=== PATIENT | male | born 1945 | race Caucasian/White ===

== ENCOUNTER 2020-08-22 16:50 | Emergency (ER) | payer OTHER, SELFPAY ==
[2020-08-22] VITALS (13 sets, daily range): BP systolic 102–118; BP diastolic 56–85; PULSE 74–85; RESP 5–36; TEMP 36.7; O2SAT 95–98
--- NOTE | 2020-08-22 16:45 | RT.EKG_ITS ---
APPROVED REPORT Exam: Resting ECG Reason for Exam: sob Patient Location: E HR:83 bpm ECG Measurements Heart Rate 83 AXIS TN 121 P 112 QRSd 102 QRS -87 QT 359 T 84 QTc 414 Conclusion Sinus rhythm...normal P axis, V-rate 60- 99 Ventricular premature complex...V complex w/ short R-R interval Right atrial enlargement...P>0.25mV 2 lds or<-0.24mV aVR/aVL Incomplete RBBB and LAFB...axis(240,-40), S>R II III aVF Physician: depressions in the inferior leads. no elevation. no stemi. artifact present
--- NOTE | 2020-08-22 17:00 | DI.RAD_ITS ---
Exam(s) XR PORTABLE CHEST AP EXAM: XR PORTABLE CHEST AP CLINICAL HISTORY: sob. TECHNIQUE: 2D digital imaging was performed. COMPARISON: No exams were available for comparison FINDINGS: Heart size is normal. The mediastinum is not widened. There are COPD changes-bilateral hyperinflation. No infiltrates nor pleural effusions. No pulmonary edema. No pneumothorax IMPRESSION: Bilateral hyperinflation-COPD. No acute infiltrates. No pneumothorax. No pleural effusions DATA REPOSITORY: RADIATION DOSE DELIVERED: All CT scans at this facility use at least one of these dose optimization techniques: automated exposure control; mA and/or kV adjustment per patient size (includes targeted e xams where dose is matched to clinical indication); or iterative reconstruction.
--- NOTE | 2020-08-22 17:05 | W.ED.GENAD ---
Discharge Plan Disposition Patient Disposition: AGAINST MEDICAL ADVICE Condition: Serious Discharge Details Clinical Impression: Dyspnea Primary Care Provider: Unknown,Unknown ED Provider: Jos Castano Home Meds and New Rx's Prescriptions: No Action ipratropium-albuterol [DuoNeb] 0.5 mg-3 mg(2.5 mg base)/3 mL Solution For Nebulization 3 ml INHALATION PRNRF: 0 polyethylene glycol 3350 17 gram Powder In Packet 17 g PO DAILY RF: 0 fluconazole 200 mg Tablet 200 mg PO DAILY RF: 0 simvastatin 80 mg Tablet 80 mg PO DAILY RF: 0 sildenafil 100 mg Tablet 100 mg PO PRNRF: 0 omeprazole 20 mg Capsule,Delayed Release(Dr/Ec) 20 mg PO BID RF: 0 fluticasone propionate 220 mcg/actuation Hfa Aerosol Inhaler 220 mcg INHALATION RF: 0 aspirin 81 mg Tablet 81 mg PO DAILY RF: 0 albuterol 90 mcg/actuation Aerosol INHALATION .2-4 HOURS PRNRF: 0 Multivitamin And Mineral Tablet 1 tab PO DAILY RF: 0 metoprolol tartrate 25 mg Tablet 25 mg PO BID RF: 0 gabapentin 100 mg Tablet 100 mg PO QID PRNRF: 0 olodaterol 2.5 mcg/actuation Mist 2 INHALATION DAILY RF: 0 acetaminophen [Tylenol Extra Strength] 500 mg Tablet 1,000 mg PO BID PRNRF: 0 ibuprofen 600 mg Tablet 600 mg PO TID PRNRF: 0 prednisone 5 mg Tablet 5 mg PO DAILY RF: 0 Discharge Data Discharge Date/Time-TO BE ENTERED AT DEPARTURE: 08/22/20 18:38 Medical Decision Making This is a 74-year-old gentleman, current smoker, COPD, hypertension, presenting to the ER today for acute on chronic dyspnea. Denies cough or chest pain. Clinically he is slightly tachypneic, breath sounds decreased throughout with scattered wheezing, clinically appears to be COPD exacerbation. However, would like to obtain laboratory values and chest x-ray to rule out atypical ACS, PE, pneumonia, CHF given his shortness of breath, etc. Patient is agreeable with this plan. Will provide a duo and albuterol neb and 125 IV Solu-Medrol. Patient given 125 IV Solu-Medrol. I was called into his room after his neb treatments were completed. Patient states that he does not want to sit any longer and would like to leave. At this point his x-ray was obtained but not officially read by radiology, I did not see any acute infiltrates. Only some laboratory values have resulted including a blood cell count of 20.29. I was able to review records from [facility] on 08/19 of a white count of 25.7. White count is decreasing, no clear signs of infiltrate, likely secondary to steroid use. At this time his troponin, D-dimer, BNP has not resulted so I explained to the patient that his work-up was not completed and I cannot discharge him safely until I have more information. Patient states that he is feeling anxious, I did offer a benzodiazepine but patient declines. Patient appears clinically sober, is of sound mind, and based upon my clinical examination has the capacity to make their own decisions. We have offered treatment options and discussed the the risks and benefits of these options and refusing these options, including and/or disability specific to the patient's pathology. Pt is able to discuss and understands the risks and benefits and alternatives of treatment and refusing treatment. We have tried to involve the patient's family/friend who was in the exam room. The patient still chooses to leave before evaluation and treatment can be completed AGAINST MEDICAL ADVICE. Fortunately after the patient left AMA laboratory values were able to be reviewed, D-dimer is negative per age adjustment, creatinine 1.1 with a GFR greater than 60, initial troponin less than 0.05, BNP minimally elevated at 756 Medical Records Medical records reviewed: Yes I reviewed the patient's medical records. Imaging Data Radiologic Study: Attestation: I personally reviewed and interpreted this imaging study as follows: Imaging: X-Ray Radiologist's impression: XR PORTABLE CHEST AP EXAM: XR PORTABLE CHEST AP CLINICAL HISTORY: sob. TECHNIQUE: 2D digital imaging was performed. COMPARISON: No exams were available for comparison FINDINGS: Heart size is normal. The mediastinum is not widened. There are COPD changes-bilateral hyperinflation. No infiltrates nor pleural effusions. No pulmonary edema. No pneumothorax IMPRESSION: Bilateral hyperinflation-COPD. No acute infiltrates. No pneumothorax. No pleural effusions Lab Data Lab results reviewed: Yes I reviewed the patient's lab results. Labs: Laboratory Tests Range/Units 08/22/20 08/22/20 08/22/20 17:15 17:15 17:15 WBC (4.4-10.8) 10^3/uL 20.29 H RBC (4.36-5.78) 10^6/uL 5.42 Hgb (13.5-17.5) g/dL 16.6 Hct (40.0-50.0) % 50.7 H MCV (80-95) fL 93.5 MCH (27.0-33.0) pg 30.6 MCHC (32.0-36.0) % 32.7 RDW (11.8-14.1) % 14.0 Plt Count (130-400) 10^3/uL 268 MPV (8.0-11.0) fL 9.0 Immature Gran % 1.2 Neutrophils % 88.2 Lymphocytes % 4.6 Monocytes % 5.8 Eosinophils % 0.0 Basophils % 0.2 Nucleated RBC % % 0 Absolute Neutrophils (1.2-6.7) 10^3/uL 17.90 H Absolute Lymphocytes (1.2-3.4) 10^3/uL 0.93 L Absolute Monocytes (0.1-0.8) 10^3/uL 1.18 H Absolute Eosinophils (0.0-0.7) 10^3/uL 0.00 Absolute Basophils (0.0-0.2) 10^3/uL 0.04 PT Cancelled INR Cancelled APTT Cancelled D-Dimer Cancelled Sodium (136-145) mmol/L 139 Potassium (3.5-5.1) mmol/L 4.7 Chloride (98-107) mmol/L 102 Carbon Dioxide (21.0-32.0) mmol/L 34.8 H Anion Gap (3-11) mmol/L 2.2 L BUN (7-18) mg/dL 29 H Creatinine (0.70-1.30) mg/dL 1.1 Estimated GFR/1.73 m2 (mL/min/1.73m2) >= 60.00 Glucose (74-106) mg/dL 129 H Calcium (8.5-10.1) mg/dL 9.1 Magnesium (1.8-2.4) mg/dL 1.9 Total Bilirubin (0.2-1.0) mg/dL 0.6 AST (15-37) U/L 17 ALT (16-63) U/L 40 Alkaline Phosphatase (46-116) U/L 52 Troponin I (<0.06) ng/mL < 0.05 NT-Pro-B Natriuret Pep (<300) pg/mL 756 H Total Protein (6.4-8.2) g/dL 6.1 L Albumin (3.4-5.0) g/dL 3.4 Range/Units 08/22/20 17:35 WBC (4.4-10.8) 10^3/uL RBC (4.36-5.78) 10^6/uL Hgb (13.5-17.5) g/dL Hct (40.0-50.0) % MCV (80-95) fL MCH (27.0-33.0) pg MCHC (32.0-36.0) % RDW (11.8-14.1) % Plt Count (130-400) 10^3/uL MPV (8.0-11.0) fL Immature Gran % Neutrophils % Lymphocytes % Monocytes % Eosinophils % Basophils % Nucleated RBC % % Absolute Neutrophils (1.2-6.7) 10^3/uL Absolute Lymphocytes (1.2-3.4) 10^3/uL Absolute Monocytes (0.1-0.8) 10^3/uL Absolute Eosinophils (0.0-0.7) 10^3/uL Absolute Basophils (0.0-0.2) 10^3/uL PT 11.0 INR 1.1 APTT 23.4 D-Dimer 543 H Sodium (136-145) mmol/L Potassium (3.5-5.1) mmol/L Chloride (98-107) mmol/L Carbon Dioxide (21.0-32.0) mmol/L Anion Gap (3-11) mmol/L BUN (7-18) mg/dL Creatinine (0.70-1.30) mg/dL Estimated GFR/1.73 m2 (mL/min/1.73m2) Glucose (74-106) mg/dL Calcium (8.5-10.1) mg/dL Magnesium (1.8-2.4) mg/dL Total Bilirubin (0.2-1.0) mg/dL AST (15-37) U/L ALT (16-63) U/L Alkaline Phosphatase (46-116) U/L Troponin I (<0.06) ng/mL NT-Pro-B Natriuret Pep (<300) pg/mL Total Protein (6.4-8.2) g/dL Albumin (3.4-5.0) g/dL ECG Data Attestation: I personally reviewed and interpreted this ECG (s) as follows: Interpretation: Please see official report by Dr. Oakes. Sinus rhythm, ventricular rate of 83. Minimal depression in the inferior leads. No STEMI HPI General Mode of arrival: ambulatory. Date/Time Provider Initiated Documentation: 08/22/20 17:03. Limitations to Documentation: no limitations. Information obtained by: patient. HPI Narrative: This is a 74-year-old male, presents to the ER via private vehicle with a friend, past medical history that includes anxiety, hypertension, pulmonary emphysema, severe chronic obstructive pulmonary disease, current pack-a-day smoker, down from 3 packs a day, presenting to the ER for chronic dyspnea. Patient states I need more steroids. Patient states that he has had ongoing symptoms for nearly 1 year. He is followed by his primary care provider and contact representative and takes all of his medications as directed. Patient states over the past couple of days he has felt more short of breath than his baseline. He denies fever, headache, neck pain, chest pain, cough, abdominal pain, nausea, vomiting, change in bowel or bladder function, numbness, tingling, weakness, pain or swelling of his lower extremities. Patient tells me that he was recently at [facility] and was placed on 2 antibiotics, unsure of the name, took as directed and feels as though his early pneumonia has resolved. Patient denies recent travel or sick contacts. He does admit that he has been vaccinated against Covid. Related Data Home Medications Medication Instructions Recorded Confirmed acetaminophen [Tylenol Extra 1,000 mg PO BID PRN 08/22/20 08/22/20 Strength] albuterol mcg INHALATION .2-4 HOURS PRN 08/22/20 aspirin 81 mg PO DAILY 08/22/20 08/22/20 fluconazole 200 mg PO DAILY 08/22/20 08/22/20 fluticasone propionate 220 mcg INHALATION 08/22/20 gabapentin 100 mg PO QID PRN 08/22/20 08/22/20 ibuprofen 600 mg PO TID PRN 08/22/20 08/22/20 ipratropium-albuterol [DuoNeb] 3 ml INHALATION PRN 08/22/20 metoprolol tartrate 25 mg PO BID 08/22/20 08/22/20 multivitamin,fa-dvds-Ox-FA-min 1 tab PO DAILY 08/22/20 08/22/20 [Multivitamin And Mineral] olodaterol 2 INHALATION DAILY 08/22/20 omeprazole 20 mg PO BID 08/22/20 08/22/20 polyethylene glycol 3350 17 g PO DAILY 08/22/20 08/22/20 prednisone 5 mg PO DAILY 08/22/20 08/22/20 sildenafil 100 mg PO PRN 08/22/20 simvastatin 80 mg PO DAILY 08/22/20 08/22/20 Allergies Allergy/AdvReac Type Severity Reaction Status Date / Time No Known Allergies Allergy Unverified 08/22/20 17:08 Review of Systems Constitutional Constitutional: Denies fever(s) and Denies headache(s) ENT Ears, Nose, Mouth, and Throat: Denies headache(s) and Denies neck pain Cardiovascular Cardiovascular: Denies chest pain and Reports dyspnea Respiratory Respiratory: Denies cough and Reports dyspnea Gastrointestinal Gastrointestinal: Denies abdominal pain, Denies nausea and Denies vomiting Musculoskeletal Musculoskeletal: Denies back pain and Denies neck pain Integumentary/Breasts Skin/Breast: Denies rash Neurologic Neurologic: Denies headache(s) [facility] Social History Smoking/Tobacco Use Status: Current every day Tobacco Type: cigarettes Smoking risk assessment performed?: Yes Alcohol Intake: never Drug use: Never Exam Const General: cooperative, comfortable and ill appearing chronically Nutritional Appearance: thin Orientation: alert, awake and oriented x3 HENMT Head: normal to inspection, normocephalic and atraumatic Face and sinus: normal facial exam Mouth: moist mucous membranes Eyes General: appearance normal, both eyes and all related structures Conjunctivae: conjunctivae normal Neck Neck: normal visual inspection, full ROM, trachea midline and supple Resp Effort & Inspection: able to speak in complete sentences and tachypneic (Mild) Auscultation: diminished lung sounds bilaterally throughout and wheezes (Scattered throughout) Cardio Rate: regular rate Rhythm: regular rhythm GI Palpation: soft and nontender Back/Spine/Pelvis Back: No back tenderness Skin General skin exam: no rashes or lesions noted Neuro General: patient alert, patient awake, moves all extremities and no focal motor deficits Cognition: normal cognition Speech: speech normal Motor: muscle tone normal throughout Sensory Exam: no sensory deficits noted Extrem General: normal to inspection, full ROM, capillary refill normal, no pedal edema and no calf tenderness Psych Appearance: grossly normal Mental Status: mental status grossly normal
[2020-08-22 17:25] LABS: Abs Immature Grans 0.25 10^3/uL (0.0-0.06); Absolute Basophil Count 0.04 10^3/uL (0.0-0.2); Absolute Lymphocyte Count 0.93 10^3/uL (1.2-3.4); Absolute Monocyte Count 1.18 10^3/uL (0.1-0.8); Basophils % 0.2; HCT 50.7 % (40.0-50.0); HGB 16.6 g/dL (13.5-17.5); Immature Grans % 1.2; Lymphocytes % 4.6; MCH 30.6 pg (27.0-33.0); MCHC 32.7 % (32.0-36.0); MCV 93.5 fL (80-95); Monocytes % 5.8; Neutrophils % 88.2; Nucleated RBC 0 %; Platelet Count 268 10^3/uL (130-400); RBC 5.42 10^6/uL (4.36-5.78); RDW-SD 48.5 fL; WBC 20.29 10^3/uL (4.4-10.8)
[2020-08-22] MEDS: methylPREDNISolone SUCC 125 MG VIAL IVP (17:33)
[2020-08-22 17:47] LABS: ALT 40 U/L (16-63); AST 17 U/L (15-37); Albumin 3.4 g/dL (3.4-5.0); Alkaline Phosphatase 52 U/L (46-116); Anion Gap 2.2 mmol/L (3-11); BUN 29 mg/dL (7-18); Bilirubin, Total 0.6 mg/dL (0.2-1.0); CO2 34.8 mmol/L (21.0-32.0); CREATININE 1.1 mg/dL (0.70-1.30); Calcium 9.1 mg/dL (8.5-10.1); Chloride 102 mmol/L (98-107); Glucose 129 mg/dL (74-106); Magnesium 1.9 mg/dL (1.8-2.4); NT-proBNP 756 pg/mL (<300); Potassium 4.7 mmol/L (3.5-5.1); Sodium 139 mmol/L (136-145); Total Protein 6.1 g/dL (6.4-8.2); Troponin I < 0.05 ng/mL (<0.06)
[2020-08-22] MEDS: Albuterol 2.5 MG/3 ML INH SOLN VIAL UPD (17:54)
--- NOTE | 2020-08-22 17:59 | DI.VRAD_ITS ---
PROCEDURE INFORMATION: Exam: XR Chest Exam date and time: 08/22/2020 5:09 PM Age: 74 years old Clinical indication: Other: Shortness of breath TECHNIQUE: Imaging protocol: XR of the chest. Views: 1 view. COMPARISON: No relevant prior studies available. FINDINGS: Lungs: Extensive emphysematous changes noted. Lungs are hyperinflated. Pleural spaces: Unremarkable. No pleural effusion. No pneumothorax. Heart/Mediastinum: Unremarkable. No cardiomegaly. Bones/joints: Unremarkable. IMPRESSION: Findings worrisome for COPD/asthma exacerbation. Dictated and Authenticated by: David Amin MD. Ordering:DEBBIE Arguello MD
[2020-08-22] MEDS: Albuterol/Ipratropium 3 ML UPD VIAL UPD (18:01)
[2020-08-22 18:02] LABS: INR 1.1 (0.9-1.1); PTT Activated 23.4 sec (21.0-27.5)
[2020-08-22 18:18] LABS: D-Dimer 543 ng/mlFEU (<500)
== END 2020-08-22 18:38 | disposition left against medical advice (07) ==
LOC: ER 17:20
PROVIDERS: Emergency Provider Physician Assistant
DX: R06.82 Tachypnea, not elsewhere classified (principal); Z53.29 Procedure and treatment not carried out because of patient's decision for other reasons; F17.210 Nicotine dependence, cigarettes, uncomplicated
CPT/HCPCS: 80053; 93005; 94640; 96374; 99285; 71045; 83735; 83880; 84484; 85025; 85379; 85610; 85730; 93010; 99284; J2930; J7613; J7620